=== PATIENT | male | born 1960 | race Caucasian/White ===

== ENCOUNTER 2018-05-15 07:42 | Day surgery (SDC) | payer OTHER ==
[~2018-05-15 07:42] MED LIST: Lactated Ringers 1,000 ML IV SCH; Lidocaine 1% 4 ML ONE; Lidocaine 1%/Sod Bicarbonate in NS 8.4% 1 ML Syringe IDERM PRN; Propofol 200 MG/20 ML SDV ONE; Sodium Chloride 0.9% 10 ML Syringe FLUSH PRN; fentaNYL 100 MCG/2 ML SDV ONE
--- NOTE | 2018-05-15 09:11 | PCM.PREANE ---
Preanesthetic Assessment - Procedure Proposed Procedure: Surveillance colonoscopy - Anesthesia/Transfusion/Family Hx Anesthesia History: Prior Anesthesia Without Reaction Family History of Anesthesia Reaction: No Transfusion History: No Prior Transfusion(s) - Review of Systems General: No Symptoms Pulmonary: No Symptoms Cardiovascular: Other (HTN, HLD) Gastrointestinal: No Symptoms Neurological: No Symptoms Other: Reports: Diabetes (DM2 controlled with oral medication. GS 163 this am) - Physical Assessment NPO Status Date: 05/14/18 NPO Status Time: 21:00 O2 Sat by Pulse Oximetry: 100 Respiratory Rate: 16 Vital Signs: Last Vital Signs Temp 36.2 C 05/15/18 07:45 Pulse 70 05/15/18 07:45 Resp 16 05/15/18 07:45 BP 113/79 05/15/18 07:45 Pulse Ox 100 05/15/18 07:45 Height: 1.73 m Weight: 87.997 kg ASA Class: 2 Mental Status: Alert & Oriented x3 Airway Class: Mallampati = 2 Dentition: Reports: Normal Dentition Thyro-Mental Finger Breadths: 3 Mouth Opening Finger Breadths: 3 ROM/Head Extension: Full Lungs: Clear to Auscultation, Normal Respiratory Effort Cardiovascular: Regular Rate, Regular Rhythm - Lab Values: Laboratory Last Values POC Glucose 167 mg/dL (70-105) H 05/15/18 08:00 - Allergies Allergies/Adverse Reactions: Allergies Allergy/AdvReac Type Severity Reaction Status Date / Time mauricio seed Allergy Rash Verified 05/14/18 15:04 - Blood Blood Available: No Product(s) Available: None - Anesthesia Plan Pre-Op Medication Ordered: None - Acknowledgements Anesthesia Type Planned: MAC Pt an Appropriate Candidate for the Planned Anesthesia: Yes Alternatives and Risks of Anesthesia Discussed w Pt/Guardian: Yes Pt/Guardian Understands and Agrees with Anesthesia Plan: Yes PreAnesthesia Questionnaire HEENT History: Reports: Impaired Vision Cardiovascular History: Reports: High Cholesterol, Hypertension Respiratory History: Reports: None Gastrointestinal History: Reports: Colon Polyp Genitourinary History: Reports: None 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 Musculoskeletal History: Reports: Back Pain, Chronic, Other (See Below) Other Musculoskeletal History: rib fractures Neurological History: Reports: None Psychiatric History: Reports: None Endocrine/Metabolic History: Reports: Diabetes, Type II Hematologic History: Reports: None Immunologic History: Reports: None Oncologic (Cancer) History: Reports: Colon Dermatologic History: Reports: None - Past Surgical History Head Surgeries/Procedures: Reports: None Cardiovascular Surgical History: Reports: None Respiratory Surgical History: Reports: None GI Surgical History: Reports: Colon, Colonoscopy Female Surgical History: Reports: None Male Surgical History: Reports: None Endocrine Surgical History: Reports: None Neurological Surgical History: Reports: None Musculoskeletal Surgical History: Reports: None Oncologic Surgical History: Reports: None Dermatological Surgical History: Reports: None - SUBSTANCE USE Smoking Status *Q: Current Some Day Smoker (1 pack lasts about 4 days for about 15 years) Second Hand Smoke Exposure: No Recreational Drug Use History: No - HOME MEDS Home Medications: Home Meds Aspirin [Neno Chewable Aspirin] 81 mg PO DAILY 06/29/13 [History] metFORMIN [Glucophage] 1,000 mg PO BID 06/29/13 [History] Cholecalciferol (Vitamin D3) [Vitamin D3] 1,000 unit PO DAILY 05/14/18 [History] L Acidophil/B Lactis/B Longum [Florajen3] 460 mg PO DAILY 05/14/18 [History] Lisinopril 20 mg PO DAILY 05/14/18 [History] Methylcellulose [Fiber] 1,000 mg PO DAILY 05/14/18 [History] Multivitamin [Daily Multiple Vitamin] 1 tab PO DAILY 05/14/18 [History] Simvastatin [Zocor] 20 mg PO DAILY 05/14/18 [History] SitaGLIPtin [Januvia] 100 mg PO DAILY 05/14/18 [History] amLODIPine Besylate [Norvasc] 5 mg PO DAILY 05/14/18 [History] glipiZIDE [Glipizide ER] 2.5 mg PO DAILY 05/14/18 [History] - CURRENT (IN HOUSE) MEDS Current Meds: Current Medications Lactated Ringer's (Ringers, Lactated) 1,000 mls @ 125 mls/hr IV ASDIRECTED KENDRA Stop: 05/15/18 23:00 Last Admin: 05/15/18 08:00 Dose: 125 mls/hr Lidocaine/Sodium Bicarbonate (Buffered Lidocaine 1% In Ns 8.4%) 0.25 ml IDERM ONETIME PRN PRN Reason: Prior to IV Start Stop: 05/15/18 18:00 Last Admin: 05/15/18 08:00 Dose: 0.25 ml Sodium Chloride (Saline Flush) 10 ml FLUSH ASDIRECTED PRN PRN Reason: Keep Vein Open Stop: 05/15/18 18:00 Discontinued Medications Fentanyl (Sublimaze) Confirm Administered Dose 100 mcg .ROUTE .STK-MED ONE Stop: 05/15/18 06:57 Lidocaine HCl (Xylocaine-Mpf 1%) Confirm Administered Dose 4 mls @ as directed .ROUTE .STK-MED ONE Stop: 05/15/18 06:58 Propofol (Diprivan 20 Ml) Confirm Administered Dose 200 mg .ROUTE .STK-MED ONE Stop: 05/15/18 06:57
[2018-05-15] MEDS ORDERED: Propofol 200 MG/20 ML SDV ONE (09:40)
--- NOTE | 2018-05-15 10:12 | PCM48HPAN ---
Post Anesthesia Note - EVALUATION WITHIN 48HRS OF ANESTHETIC Vital Signs in Normal Range: Yes Patient Participated in Evaluation: Yes Respiratory Function Stable: Yes Airway Patent: Yes Cardiovascular Function Stable: Yes Hydration Status Stable: Yes Pain Control Satisfactory: Yes Nausea and Vomiting Control Satisfactory: Yes Pulse Rate: 69 SaO2: 96 Resp Rate: 16 Temperature: 36.3 C Blood Pressure: 105/81
--- NOTE | 2018-05-15 10:16 | PCM.OPNOTE ---
- General Post-Op/Procedure Note Date of Surgery/Procedure: 05/15/18 Operative Procedure(s): colonoscopy Findings: 1. Descending colon polyp 2. Intact anastomosis without any mucosal changes; evidence of previous tattooing Pre Op Diagnosis: History of colon cancer Post-Op Diagnosis: same Anesthesia Technique: MAC Primary Surgeon: Kristy Banks Anesthesia Provider: Kris Benitez Pathology: descending colon polyp Fluid Replacement, Intraop: 1,000 Output, Urine Amount: 0 EBL in mLs: 0 Complications: none apparent Condition: Good
[2018-05-15] MEDS ORDERED: ceFAZolin 1 GM Vial ONE (12:15)
[2018-05-15] MEDS ORDERED: ePHEDrine/Normal Saline 25 MG/5 ML Syringe ONE (12:18)
--- NOTE | 2018-05-15 16:26 | PCM.PRNOTE ---
- Free Text/Narrative Note: Operative Report Date of Surgery/Procedure: May 15, 2018 Operative Procedure: Colonoscopy to cecum with biopsy Pre Op Diagnosis: colorectal cancer screening with history of colon cancer Post-Op Diagnosis: . Same Surgeon: Kristy Banks Anesthesia Technique: MAC Anesthesia Provider: Nancie Benitez CRNA IV Fluid Replacement, Intraop: 1000cc Output, Urine Amount: 0cc EBL : 0cc Findings: 1. Descending colon polyp 2. Intact anastomosis without any mucosal changes; evidence of previous tattooing Specimens: Descending colon polyp Indication: The patient is a 57 year-old gentleman and who presented to the outpatient clinic requesting high risk colorectal cancer screening. The patient has a history of stage IA rectal cancer that was removed with a low anterior resection We discussed the procedure of a screening colonoscopy including the polypectomy and biopsy. Risks of bleeding and perforation were discussed, the patient understood and wished to proceed. Written and consent was obtained Description of the procedure: The patient was brought to the endoscopy suite and placed in the left lateral decubitus position. Appropriate monitors were applied. The patient was given MAC anesthesia. An anorectal examination was performed, revealing no abnormalities. The scope was placed into the rectum and advanced to cecum with no difficulty, and requiring additional maneuvers. The patients cecum was entered, and the ileocecal valve and appendiceal orifice were identified and normal. At this point, the scope was withdrawn, paying careful attention to the mucosa. The patient had good bowel prep, allowing for visualization of 80-85 % of the mucosa. . A single descending colon polyp was noted. This was sessile and removed with cold biopsy forceps. On withdrawal, we noted the anastomosis between the descending colon and rectum. There is evidence of previous tattooing and the stable line was visible. There were no tissue abnormalities in this area. There were no biopsies taken as the tissue appeared normal. In the rectum, the scope was retroflexed and no abnormalities were noted, except for some hemorrhoidal tissue. The scope was placed back in the lumen and the excess air was aspirated. The patient tolerated the procedure well. Complications: none apparent Condition: Good, transported to PACU in stable condition Kristy Banks MD General Surgery
== END 2018-05-15 10:53 | disposition home or self-care (01) ==
LOC: JD.SDS 07:42
PROVIDERS: ATTEND Surgery
DX: Z12.11 Encounter for screening for malignant neoplasm of colon (principal); D12.4 Benign neoplasm of descending colon; K64.9 Unspecified hemorrhoids; I10 Essential (primary) hypertension; E11.9 Type 2 diabetes mellitus without complications; E78.00 Pure hypercholesterolemia, unspecified; Z90.49 Acquired absence of other specified parts of digestive tract; Z87.891 Personal history of nicotine dependence; Z85.048 Personal history of other malignant neoplasm of rectum, rectosigmoid junction, and anus; Z79.82 Long term (current) use of aspirin; Z79.84 Long term (current) use of oral hypoglycemic drugs; Z79.899 Other long term (current) drug therapy
CPT/HCPCS: 45380; 82962; J0690; J2001; J2704; J3010; J7120; 00812; J7050

== ENCOUNTER 2022-03-17 08:30 | Emergency (ER) | payer BC, OTHER ==
[2022-03-17] MEDS ORDERED: Ketorolac 60 MG/2 ML SDV IM ONE (09:24)
== END 2022-03-17 11:44 | disposition home or self-care (01) ==
LOC: JD.ED 08:30
DX: M54.6 Pain in thoracic spine (principal); E78.00 Pure hypercholesterolemia, unspecified; I10 Essential (primary) hypertension; E11.9 Type 2 diabetes mellitus without complications; Z72.0 Tobacco use; Z91.018 Allergy to other foods; Z79.82 Long term (current) use of aspirin; Z79.84 Long term (current) use of oral hypoglycemic drugs; Z79.899 Other long term (current) drug therapy; W00.0XXA Fall on same level due to ice and snow, initial encounter
CPT/HCPCS: 72070; 72100; 96372; 99283; J1885